=== PATIENT | male | born 1935 | race Caucasian/White ===

== ENCOUNTER 2018-09-26 06:48 | Emergency (ER) | payer OTHER ==
[~2018-09-26] VITALS: Ht 175.3 cm; Wt 63.5 kg
[~2018-09-26 06:48] MED LIST: AVAPRO300 MG; KEPPRA750 MG; ZOLOFT20 MG/ML; ZOLOFT25 MG
[2018-09-26] MEDS ORDERED: SYNTHROID175 MCG (06:52)
[2018-09-26] MEDS ORDERED: CONSTULOSE10 GM/15 M (06:53)
[2018-09-26] MEDS ORDERED: NORVASC2.5 M1 (06:53)
== END 2018-09-26 11:38 | disposition home or self-care (01) ==
LOC: ER 06:48
DX: G40.802 Other epilepsy, not intractable, without status epilepticus (principal)

== ENCOUNTER 2023-07-30 20:43 | Inpatient (IN) | payer OTHER ==
[~2023-07-30] VITALS: Ht 243.8 cm; Wt 589.7 kg
[~2023-07-30 20:43] MED LIST changes: +CONSTULOSE10 GM/15 M; +NORVASC2.5 M1; +SYNTHROID175 MCG
[2023-07-30] MEDS ORDERED: TAMS0.4C PO (20:51)
[2023-07-30 21:26] LABS: HEMOGLOBIN 13.5 g/dL (13-16.00); MEAN CELL VOLUME 91.6 fL (80.0-100.00); MEAN CORPUSCULAR HEMOGLOBIN 30.9 pg (27.00-32.0); MEAN CORPUSCULAR HGB CONC 33.7 g/dl (32.0-36.0); PLATELET COUNT 142 K/uL (150-450); RED BLOOD COUNT 4.36 M/uL (4.00-6.00); RED CELL DISTRIBUTION WIDTH 13.7 % (11.5-14.5)
[2023-07-30 21:44] LABS: INR 1.2; PARTIAL THROMBOPLASTIN TIME 32.9 SECONDS (22.0-34.0); PROTHROMBIN TIME 12.4 SECONDS (9.0-11.5)
[2023-07-30 21:46] LABS: CALCIUM 9.3 mg/dL (8.5-10.1); CREATININE SERUM 0.92 mg/dL (0.70-1.30); GFR 77.46; POTASSIUM 3.68 mEq/L (3.5-5.1)
[2023-07-30 21:48] LABS: URINE APPEARANCE Clear; URINE BILIRRUBIN Negative (NEGATIVE); URINE BLOOD Large; URINE COLOR Yellow; URINE GLUCOSE Negative (NEGATIVE); URINE LEUKOCYTE Negative; URINE NITRATE Negative; URINE PROTEIN Negative (NEGATIVE); URINE UROBILINOGEN 0.2 E.U./dl
[2023-07-30 21:51] LABS: URINE BACTERIA 18.8 uL (0.0-1933); URINE EPITHELIAL CELLS 3.2 uL (0.0-38.8); URINE RBC 829.8 uL (0.0-20.8); URINE WBC 3.2 uL (0.0-23.2)
[2023-07-30 22:56] LABS: ABG PH 7.292 (7.35-7.45); ABG PO2 283.8 mmHg (80-100); ABG pCO2 52.3 mmHg (35-45); BASE EXCESS -2.6 mmol/l; BICARBONATE 24.7 mmol/l (23-25); SaO2 99.8 %; Tco2 26.3 mmol/l
[2023-07-30 22:57] LABS: allen test SATISFACTORY; o2 100 %; puncture site RADIAL RIGHT
[2023-07-31 00:11] LABS: ABG PH 7.349 (7.35-7.45); BASE EXCESS -4.6 mmol/l; BICARBONATE 20.5 mmol/l (23-25); SaO2 99.6 %; Tco2 21.6 mmol/l; allen test SATISFACTORY; o2 100 %; puncture site RADIAL LEFT
[2023-08-01 00:42] LABS: ABG PH 7.463 (7.35-7.45); ABG PO2 285.8 mmHg (80-100); ABG pCO2 30.3 mmHg (35-45); BASE EXCESS -1.4 mmol/l; BICARBONATE 21.2 mmol/l (23-25); SaO2 99.9 %; Tco2 22.1 mmol/l
[2023-08-01 00:43] LABS: allen test SATISFACTORY; o2 100 %; puncture site RADIAL RIGHT
[2023-08-01 01:21] LABS: ALBUMIN 2.4 gm/dL (3.4-5.0); BILIRUBIN TOTAL 1.08 mg/dL (0.3-1.2); CALCIUM 8.6 mg/dL (8.5-10.1); CREATININE SERUM 0.89 mg/dL (0.70-1.30); GFR 80.48; GLOBULINA 3.5 G/DL (2.4-3.5); POTASSIUM 3.56 mEq/L (3.5-5.1); TOTAL PROTEIN 5.9 gm/dL (6.4-8.2)
[2023-08-01 06:56] LABS: HEMATOCRIT 35.8 % (39.0-48.0); HEMOGLOBIN 11.8 g/dL (13-16.00); MEAN CELL VOLUME 92.2 fL (80.0-100.00); MEAN CORPUSCULAR HEMOGLOBIN 30.3 pg (27.00-32.0); MEAN CORPUSCULAR HGB CONC 32.9 g/dl (32.0-36.0); PLATELET COUNT 134 K/uL (150-450); RED BLOOD COUNT 3.88 M/uL (4.00-6.00); RED CELL DISTRIBUTION WIDTH 13.9 % (11.5-14.5)
[2023-08-01 07:19] LABS: BILIRUBIN TOTAL 0.7 mg/dL (0.3-1.2); CALCIUM 7.7 mg/dL (8.5-10.1); CREATININE SERUM 1.16 mg/dL (0.70-1.30); GFR 59.28; GLOBULINA 3.2 G/DL (2.4-3.5); MAGNESIUM 1.5 mg/dL (1.8-2.4); PHOSPHOROUS 2.7 mg/dL (2.5-4.9); POTASSIUM 3.19 mEq/L (3.5-5.1); TOTAL PROTEIN 5.2 gm/dL (6.4-8.2)
[2023-08-01 08:04] LABS: C-REACTIVE PROTEIN 15.1 MG/DL (0.00-0.29)
[2023-08-01 11:46] LABS: ABG PH 7.456 (7.35-7.45); ABG PO2 325.9 mmHg (80-100); ABG pCO2 27.8 mmHg (35-45)
[2023-08-01 11:47] LABS: BASE EXCESS -3.2 mmol/l; BICARBONATE 19.1 mmol/l (23-25); SaO2 99.9 %; allen test SATISFACTORY; o2 80 %; puncture site RADIAL LEFT
[2023-08-01 14:24] LABS: ABG PH 7.433 (7.35-7.45); ABG PO2 173.3 mmHg (80-100); ABG pCO2 30.6 mmHg (35-45); SaO2 99.6 %; Tco2 20.9 mmol/l; allen test SATISFACTORY; o2 50 %; puncture site RADIAL RIGHT
[2023-08-02 10:46] LABS: ABG PH 7.478 (7.35-7.45); ABG PO2 182.4 mmHg (80-100); ABG pCO2 26.5 mmHg (35-45); BASE EXCESS -2.3 mmol/l; BICARBONATE 19.2 mmol/l (23-25); SaO2 99.7 %; allen test SATISFACTORY; o2 50 %; puncture site RADIAL RIGHT
[2023-08-02 19:10] LABS: HEMATOCRIT 38.9 % (39.0-48.0); HEMOGLOBIN 13.1 g/dL (13-16.00); MEAN CELL VOLUME 89.3 fL (80.0-100.00); MEAN CORPUSCULAR HEMOGLOBIN 30.1 pg (27.00-32.0); MEAN CORPUSCULAR HGB CONC 33.7 g/dl (32.0-36.0); PLATELET COUNT 156 K/uL (150-450); RED BLOOD COUNT 4.35 M/uL (4.00-6.00); RED CELL DISTRIBUTION WIDTH 14.3 % (11.5-14.5)
[2023-08-02 19:25] LABS: ALBUMIN 2.1 gm/dL (3.4-5.0); BILIRUBIN TOTAL 0.86 mg/dL (0.3-1.2); CALCIUM 8.3 mg/dL (8.5-10.1); CREATININE SERUM 0.64 mg/dL (0.70-1.30); GFR 117.75; GLOBULINA 3.1 G/DL (2.4-3.5); POTASSIUM 3.41 mEq/L (3.5-5.1); TOTAL PROTEIN 5.2 gm/dL (6.4-8.2)
[2023-08-03 08:39] LABS: ABG PH 7.391 (7.35-7.45); ABG pCO2 34.9 mmHg (35-45); BASE EXCESS -3.5 mmol/l; BICARBONATE 20.7 mmol/l (23-25); SaO2 98.5 %; Tco2 21.7 mmol/l; allen test SATISFACTORY; o2 40 %; puncture site RADIAL RIGHT
[2023-08-03 11:25] LABS: HEMATOCRIT 38.2 % (39.0-48.0); HEMOGLOBIN 12.8 g/dL (13-16.00); MEAN CELL VOLUME 89.1 fL (80.0-100.00); MEAN CORPUSCULAR HEMOGLOBIN 29.7 pg (27.00-32.0); MEAN CORPUSCULAR HGB CONC 33.4 g/dl (32.0-36.0); PLATELET COUNT 147 K/uL (150-450); RED BLOOD COUNT 4.29 M/uL (4.00-6.00); RED CELL DISTRIBUTION WIDTH 14.4 % (11.5-14.5)
[2023-08-03 11:41] LABS: ALBUMIN 1.9 gm/dL (3.4-5.0); BILIRUBIN TOTAL 0.77 mg/dL (0.3-1.2); CREATININE SERUM 0.62 mg/dL (0.70-1.30); GFR 122.15; GLOBULINA 2.9 G/DL (2.4-3.5); POTASSIUM 3.62 mEq/L (3.5-5.1); TOTAL PROTEIN 4.8 gm/dL (6.4-8.2)
[2023-08-03 17:52] LABS: INR 1.06; PARTIAL THROMBOPLASTIN TIME 33.2 SECONDS (22.0-34.0); PROTHROMBIN TIME 11.1 SECONDS (9.0-11.5)
[2023-08-04 09:24] LABS: ABG PH 7.439 (7.35-7.45); ABG PO2 103.5 mmHg (80-100); ABG pCO2 32.4 mmHg (35-45); BASE EXCESS -1.7 mmol/l; BICARBONATE 21.5 mmol/l (23-25); SaO2 98.1 %; Tco2 22.5 mmol/l
[2023-08-04 09:25] LABS: allen test SATISFACTORY; o2 40 %; puncture site RADIAL RIGHT
[2023-08-05 07:17] LABS: HEMATOCRIT 37.6 % (39.0-48.0); HEMOGLOBIN 12.7 g/dL (13-16.00); MEAN CELL VOLUME 89.7 fL (80.0-100.00); MEAN CORPUSCULAR HEMOGLOBIN 30.3 pg (27.00-32.0); MEAN CORPUSCULAR HGB CONC 33.8 g/dl (32.0-36.0); PLATELET COUNT 166 K/uL (150-450); RED BLOOD COUNT 4.19 M/uL (4.00-6.00)
[2023-08-05 07:55] LABS: CREATININE SERUM 0.69 mg/dL (0.70-1.30); GFR 107.96; POTASSIUM 3.42 mEq/L (3.5-5.1)
[2023-08-05 15:11] LABS: ABG PH 7.501 (7.35-7.45); BASE EXCESS 0.3 mmol/l; BICARBONATE 22.2 mmol/l (23-25); SaO2 98.7 %; Tco2 23.1 mmol/l
[2023-08-05 15:12] LABS: allen test SATISFACTORY; o2 40 %; puncture site RADIAL RIGHT
[2023-08-06 06:11] LABS: HEMATOCRIT 33.6 % (39.0-48.0); HEMOGLOBIN 11.7 g/dL (13-16.00); MEAN CELL VOLUME 88.8 fL (80.0-100.00); MEAN CORPUSCULAR HEMOGLOBIN 30.8 pg (27.00-32.0); MEAN CORPUSCULAR HGB CONC 34.7 g/dl (32.0-36.0); PLATELET COUNT 148 K/uL (150-450); RED BLOOD COUNT 3.78 M/uL (4.00-6.00); RED CELL DISTRIBUTION WIDTH 14.2 % (11.5-14.5)
[2023-08-06 06:33] LABS: ALBUMIN 1.7 gm/dL (3.4-5.0); BILIRUBIN TOTAL 1.03 mg/dL (0.3-1.2); CALCIUM 7.8 mg/dL (8.5-10.1); CREATININE SERUM 0.6 mg/dL (0.70-1.30); GFR 126.86; POTASSIUM 3.37 mEq/L (3.5-5.1); TOTAL PROTEIN 4.7 gm/dL (6.4-8.2)
[2023-08-06 20:01] LABS: ABG PO2 110.2 mmHg (80-100); ABG pCO2 30.5 mmHg (35-45); BASE EXCESS -0.2 mmol/l; SaO2 98.6 %
[2023-08-06 20:02] LABS: BICARBONATE 22.2 mmol/l (23-25); Tco2 23.2 mmol/l; allen test SATISFACTORY; o2 40 %; puncture site RADIAL RIGHT
[2023-08-07 06:08] LABS: HEMATOCRIT 33.3 % (39.0-48.0); HEMOGLOBIN 11.4 g/dL (13-16.00); MEAN CELL VOLUME 89.7 fL (80.0-100.00); MEAN CORPUSCULAR HEMOGLOBIN 30.7 pg (27.00-32.0); MEAN CORPUSCULAR HGB CONC 34.2 g/dl (32.0-36.0); PLATELET COUNT 170 K/uL (150-450); RED BLOOD COUNT 3.72 M/uL (4.00-6.00); RED CELL DISTRIBUTION WIDTH 13.8 % (11.5-14.5)
[2023-08-07 06:43] LABS: CREATININE SERUM 0.63 mg/dL (0.70-1.30); GFR 119.91; POTASSIUM 3.81 mEq/L (3.5-5.1)
[2023-08-07 09:23] LABS: ABG PH 7.484 (7.35-7.45)
[2023-08-07 09:24] LABS: ABG pCO2 28.9 mmHg (35-45); BASE EXCESS -0.9 mmol/l; BICARBONATE 21.2 mmol/l (23-25); SaO2 98.6 %; Tco2 22.1 mmol/l
[2023-08-07 09:25] LABS: allen test SATISFACTORY; o2 30 %; puncture site RADIAL RIGHT
[2023-08-08 07:25] LABS: HEMATOCRIT 30.3 % (39.0-48.0); HEMOGLOBIN 10.4 g/dL (13-16.00); MEAN CELL VOLUME 89.6 fL (80.0-100.00); MEAN CORPUSCULAR HEMOGLOBIN 30.7 pg (27.00-32.0); MEAN CORPUSCULAR HGB CONC 34.3 g/dl (32.0-36.0); PLATELET COUNT 201 K/uL (150-450); RED BLOOD COUNT 3.38 M/uL (4.00-6.00); RED CELL DISTRIBUTION WIDTH 13.8 % (11.5-14.5)
[2023-08-08 09:01] LABS: ABG PH 7.486 (7.35-7.45); ABG PO2 100.3 mmHg (80-100); ABG pCO2 28.1 mmHg (35-45); BASE EXCESS -1.2 mmol/l; BICARBONATE 20.8 mmol/l (23-25); SaO2 98.2 %; Tco2 21.6 mmol/l; allen test SATISFACTORY; puncture site RADIAL RIGHT
[2023-08-08 09:07] LABS: o2 35 %
[2023-08-09 11:26] LABS: ABG PH 7.506 (7.35-7.45); ABG PO2 101.3 mmHg (80-100); ABG pCO2 27.6 mmHg (35-45); BASE EXCESS -0.3 mmol/l; BICARBONATE 21.3 mmol/l (23-25); SaO2 98.4 %; Tco2 22.1 mmol/l
[2023-08-09 11:27] LABS: allen test SATISFACTORY; o2 35 %; puncture site RADIAL RIGHT
[2023-08-10 11:08] LABS: ABG PH 7.471 (7.35-7.45); ABG PO2 140.8 mmHg (80-100); ABG pCO2 29.5 mmHg (35-45); BASE EXCESS -1.3 mmol/l; SaO2 99.3 %
[2023-08-10 11:09] LABS: allen test SATISFACTORY; o2 35 %; puncture site RADIAL RIGHT
[2023-08-11 09:48] LABS: ABG PH 7.501 (7.35-7.45); ABG PO2 90.6 mmHg (80-100); ABG pCO2 27.6 mmHg (35-45); BASE EXCESS -0.6 mmol/l; SaO2 97.8 %; Tco2 21.9 mmol/l
[2023-08-11 09:49] LABS: allen test SATISFACTORY; o2 35 %; puncture site RADIAL RIGHT
[2023-08-12 10:26] LABS: HEMATOCRIT 30.3 % (39.0-48.0); HEMOGLOBIN 10.3 g/dL (13-16.00); MEAN CELL VOLUME 90.5 fL (80.0-100.00); MEAN CORPUSCULAR HEMOGLOBIN 30.7 pg (27.00-32.0); MEAN CORPUSCULAR HGB CONC 33.9 g/dl (32.0-36.0); PLATELET COUNT 314 K/uL (150-450); RED BLOOD COUNT 3.35 M/uL (4.00-6.00); RED CELL DISTRIBUTION WIDTH 14.2 % (11.5-14.5)
[2023-08-12 10:58] LABS: CALCIUM 8.6 mg/dL (8.5-10.1); CREATININE SERUM 0.53 mg/dL (0.70-1.30); GFR 146.38; POTASSIUM 4.18 mEq/L (3.5-5.1)
[2023-08-12 12:24] LABS: ABG PH 7.484 (7.35-7.45)
[2023-08-12 12:25] LABS: ABG PO2 109.7 mmHg (80-100); ABG pCO2 28.6 mmHg (35-45); SaO2 98.6 %; Tco2 21.9 mmol/l
[2023-08-12 12:26] LABS: allen test SATISFACTORY; o2 35 %; puncture site RADIAL RIGHT
[2023-08-12 20:59] LABS: URINE APPEARANCE Cloudy; URINE BILIRRUBIN Negative (NEGATIVE); URINE BLOOD Small; URINE COLOR Yellow; URINE GLUCOSE Negative (NEGATIVE); URINE LEUKOCYTE Trace; URINE NITRATE Negative; URINE PROTEIN Trace (NEGATIVE); URINE UROBILINOGEN 0.2 E.U./dl
[2023-08-12 21:03] LABS: URINE BACTERIA 56.6 uL (0.0-1933); URINE RBC 52.5 uL (0.0-20.8)
[2023-08-13 06:23] LABS: HEMATOCRIT 29.2 % (39.0-48.0); HEMOGLOBIN 9.8 g/dL (13-16.00); MEAN CELL VOLUME 89.7 fL (80.0-100.00); MEAN CORPUSCULAR HEMOGLOBIN 30.2 pg (27.00-32.0); MEAN CORPUSCULAR HGB CONC 33.7 g/dl (32.0-36.0); PLATELET COUNT 338 K/uL (150-450); RED BLOOD COUNT 3.26 M/uL (4.00-6.00); RED CELL DISTRIBUTION WIDTH 14.8 % (11.5-14.5)
[2023-08-13 07:06] LABS: ALBUMIN 1.4 gm/dL (3.4-5.0); BILIRUBIN TOTAL 0.74 mg/dL (0.3-1.2); C-REACTIVE PROTEIN 7.47 MG/DL (0.00-0.29); CALCIUM 8.3 mg/dL (8.5-10.1); CREATININE SERUM 0.52 mg/dL (0.70-1.30); GFR 149.64; GLOBULINA 3.5 G/DL (2.4-3.5); MAGNESIUM 1.9 mg/dL (1.8-2.4); PHOSPHOROUS 2.1 mg/dL (2.5-4.9); POTASSIUM 4.2 mEq/L (3.5-5.1); TOTAL PROTEIN 4.9 gm/dL (6.4-8.2)
[2023-08-13 09:06] LABS: ABG PH 7.494 (7.35-7.45); ABG PO2 94.7 mmHg (80-100); ABG pCO2 31.3 mmHg (35-45); BASE EXCESS 1.2 mmol/l; BICARBONATE 23.6 mmol/l (23-25); Tco2 24.5 mmol/l
[2023-08-13 09:07] LABS: allen test SATISFACTORY; o2 35 %; puncture site RADIAL RIGHT
[2023-08-14 10:16] LABS: ABG PO2 152.4 mmHg (80-100); ABG pCO2 27.3 mmHg (35-45); BASE EXCESS -1.4 mmol/l; BICARBONATE 20.4 mmol/l (23-25); SaO2 99.5 %
[2023-08-14 10:17] LABS: Tco2 21.2 mmol/l; allen test SATISFACTORY; o2 35 %; puncture site RADIAL RIGHT
[2023-08-15 06:44] LABS: HEMATOCRIT 28.8 % (39.0-48.0); HEMOGLOBIN 9.7 g/dL (13-16.00); MEAN CORPUSCULAR HEMOGLOBIN 30.7 pg (27.00-32.0); MEAN CORPUSCULAR HGB CONC 33.8 g/dl (32.0-36.0); PLATELET COUNT 337 K/uL (150-450); RED BLOOD COUNT 3.16 M/uL (4.00-6.00); RED CELL DISTRIBUTION WIDTH 14.3 % (11.5-14.5)
[2023-08-15 06:55] LABS: CALCIUM 8.7 mg/dL (8.5-10.1); CREATININE SERUM 0.51 mg/dL (0.70-1.30); GFR 153.03; POTASSIUM 3.95 mEq/L (3.5-5.1)
[2023-08-15 08:36] LABS: ABG PH 7.462 (7.35-7.45); ABG PO2 164.5 mmHg (80-100); ABG pCO2 30.5 mmHg (35-45); BASE EXCESS -1.3 mmol/l; BICARBONATE 21.3 mmol/l (23-25); SaO2 99.5 %
[2023-08-15 08:37] LABS: Tco2 22.3 mmol/l
[2023-08-15 08:38] LABS: allen test SATISFACTORY; o2 35 %; puncture site RADIAL RIGHT
[2023-08-15 10:03] LABS: ABG PH 7.456 (7.35-7.45)
[2023-08-15 10:04] LABS: ABG PO2 113.1 mmHg (80-100); ABG pCO2 30.4 mmHg (35-45); BASE EXCESS -1.7 mmol/l; SaO2 98.6 %; Tco2 21.9 mmol/l; o2 35 %; puncture site RADIAL RIGHT
[2023-08-15 10:05] LABS: allen test SATISFACTORY
[2023-08-20 06:42] LABS: HEMATOCRIT 27.7 % (39.0-48.0); HEMOGLOBIN 9.4 g/dL (13-16.00); MEAN CELL VOLUME 90.1 fL (80.0-100.00); MEAN CORPUSCULAR HEMOGLOBIN 30.5 pg (27.00-32.0); MEAN CORPUSCULAR HGB CONC 33.9 g/dl (32.0-36.0); PLATELET COUNT 227 K/uL (150-450); RED BLOOD COUNT 3.07 M/uL (4.00-6.00)
[2023-08-20 07:11] LABS: CALCIUM 8.2 mg/dL (8.5-10.1); CREATININE SERUM 0.51 mg/dL (0.70-1.30); GFR 153.03; POTASSIUM 3.63 mEq/L (3.5-5.1)
[2023-08-20 10:57] LABS: ABG PH 7.417 (7.35-7.45); ABG PO2 66.2 mmHg (80-100); ABG pCO2 32.5 mmHg (35-45)
[2023-08-20 10:58] LABS: BICARBONATE 20.5 mmol/l (23-25); Tco2 21.5 mmol/l; o2 21 %
[2023-08-20 10:59] LABS: allen test SATISFACTORY; puncture site RADIAL RIGHT
== END 2023-08-21 19:01 | disposition home or self-care (01) | DRG 3 ==
LOC: ER 20:43 → ICU 22:57 → ICU-2 22:57 → MEDI 22:57 → ICU 08-02 14:53 → MEDI 08-16 13:01
PROVIDERS: General Practice; Internal Medicine; Internal Medicine Infectious Disease; Specialist; Surgery; ADMIT Internal Medicine; ATTEND Internal Medicine
PROC: B246ZZZ Ultrasonography of Right and Left Heart (ICD-10-PCS; 2023-07-31)
PROC: 3E0F7GC Introduction of Other Therapeutic Substance into Respiratory Tract, Via Natural or Artificial Opening (ICD-10-PCS; 2023-07-31)
PROC: 0BH18EZ Insertion of Endotracheal Airway into Trachea, Via Natural or Artificial Opening Endoscopic (ICD-10-PCS; 2023-07-31)
PROC: 5A1945Z Respiratory Ventilation, 24-96 Consecutive Hours (ICD-10-PCS; 2023-07-31)
PROC: BW28ZZZ Computerized Tomography (CT Scan) of Head (ICD-10-PCS; 2023-08-01)
PROC: 02HV33Z Insertion of Infusion Device into Superior Vena Cava, Percutaneous Approach (ICD-10-PCS; 2023-08-03)
PROC: 0BH18EZ Insertion of Endotracheal Airway into Trachea, Via Natural or Artificial Opening Endoscopic (ICD-10-PCS; 2023-08-05)
PROC: 0G8J0ZZ Division of Thyroid Gland Isthmus, Open Approach (ICD-10-PCS; 2023-08-13)
PROC: 0DH60UZ Insertion of Feeding Device into Stomach, Open Approach (ICD-10-PCS; 2023-08-13)
PROC: 0B110Z4 Bypass Trachea to Cutaneous, Open Approach (ICD-10-PCS; principal; 2023-08-13 14:00)
PROC: 5A0935A Assistance with Respiratory Ventilation, Less than 24 Consecutive Hours, High Flow/Velocity Cannula (ICD-10-PCS; 2023-08-17)
PROC: 4A12X4Z Monitoring of Cardiac Electrical Activity, External Approach (ICD-10-PCS; 2023-08-19)
DX: A41.9 Sepsis, unspecified organism (principal); I21.4 Non-ST elevation (NSTEMI) myocardial infarction; J69.0 Pneumonitis due to inhalation of food and vomit; J96.00 Acute respiratory failure, unspecified whether with hypoxia or hypercapnia; I46.9 Cardiac arrest, cause unspecified; I50.20 Unspecified systolic (congestive) heart failure; J90 Pleural effusion, not elsewhere classified; I50.9 Heart failure, unspecified; I11.0 Hypertensive heart disease with heart failure; G40.901 Epilepsy, unspecified, not intractable, with status epilepticus; I48.0 Paroxysmal atrial fibrillation; D72.828 Other elevated white blood cell count; B96.89 Other specified bacterial agents as the cause of diseases classified elsewhere